=== PATIENT | female | born 1975 ===

== ENCOUNTER → 2020-12-21 10:17 | Outpatient (CLI) | payer OTHER | END | disposition home or self-care (01) | LOC: PPH VACUNA 10:17 | DX: Z23 Encounter for immunization (principal) ==

== ENCOUNTER 2022-05-20 08:39 | Outpatient (CLI) | payer OTHER | END 2022-05-20 08:44 | disposition home or self-care (01) | LOC: PPH VACUNA 08:39 | PROVIDERS: ATTEND Emergency Medicine Pediatric Emergency Medicine | DX: Z23 Encounter for immunization (principal) ==